=== PATIENT | female | born 1975 | race Two or more races ===

== ENCOUNTER → 2016-12-21 | Outpatient (REF) | payer BC ==
[~2016-12-21] MED LIST: CYMB1CAP PO; DICL75TA PO; DIPH25CA PO; LAMI25TA PO; PROZ40CA PO; WELLTAB PO
[2016-12-21 12:56] LABS: BASO # 0.1 K/mm3 (0.0-0.2); EOS # 0.1 K/mm3 (0.0-0.50); EOS % 1.8 % (0.0-3.0); LARGE UNSTAINED CELL # 0.1 K/mm3 (0.0-0.4); LARGE UNSTAINED CELL % 1.3 % (0.0-4.0); LYMPH # 2.4 K/mm3 (1.5-4.5); LYMPH % 33.3 % (24.0-44.0); MEAN CORPUSCULAR HEMOGLOBIN 30.7 pg (27.0-33.0); MEAN CORPUSCULAR HGB CONC 35.5 g/dl (32.0-36.5); MEAN CORPUSCULAR VOLUME 86.7 fl (80.0-96.0); MONO # 0.4 K/mm3 (0.0-0.8); MONO % 5.1 % (0.0-5.0); NEUTROPHILS % 57.6 % (36.0-66.0); PLATELET COUNT, AUTOMATED 217 k/mm3 (150-450); RED CELL DISTRIBUTION WIDTH 12.9 % (11.5-14.5)
[2016-12-21 13:12] LABS: ALBUMIN 4.1 GM/DL (3.2-5.2); ALBUMIN/GLOBULIN RATIO 1.32 (1.00-1.93); ALKALINE PHOSPHATASE 58 U/L (45-117); ALT/SGPT 17 U/L (12-78); ANION GAP 10 MEQ/L (8-16); AST/SGOT 10 U/L (15-37); BILIRUBIN,TOTAL 0.4 MG/DL (0.2-1.0); BLOOD UREA NITROGEN 10 MG/DL (7-18); CALCIUM LEVEL 8.4 MG/DL (8.5-10.1); CARBON DIOXIDE LEVEL 26 MEQ/L (21-32); CHLORIDE LEVEL 108 MEQ/L (98-107); CREATININE FOR GFR 0.91 MG/DL (0.55-1.02); GLOMERULAR FILTRATION RATE > 60.0 (>58); GLUCOSE, FASTING 85 MG/DL (70-105); POTASSIUM SERUM 4.2 MEQ/L (3.5-5.1); SODIUM LEVEL 144 MEQ/L (136-145); TOTAL PROTEIN 7.2 GM/DL (6.4-8.2)
== END ==
LOC: M LABDRAW1 11:55
PROVIDERS: ATTEND Nurse Practitioner Family
DX: F31.9 Bipolar disorder, unspecified (principal)

== ENCOUNTER 2017-03-19 20:53 | Emergency (ER) | payer BC ==
[~2017-03-19] VITALS: Ht 160 cm; Wt 71.4 kg
[~2017-03-19 20:53] MED LIST changes: -CIPR-249 PO; -FLAG500T PO; -LATU40TA; -NEUR300C; -NORCOTAB PO; -TOPA50TA8; -ZOFR4TAB3 PO
[2017-03-19] MEDS ORDERED: LATU40TA (21:04)
[2017-03-19] MEDS ORDERED: NEUR300C (21:04)
[2017-03-19] MEDS ORDERED: TOPA50TA8 (21:04)
[2017-03-19] MEDS ORDERED: MORPHINE 4 MG/ML 1ML SYRINGE IV ONE (23:30)
[2017-03-19] MEDS ORDERED: ONDANSETRON 4MG/2ML VIAL (J2405) IV ONE (23:30)
[2017-03-19] MEDS ORDERED: NS 1,000 ML IV ONE (23:30)
[2017-03-19 23:49] LABS: BASO % 0.4 % (0.0-1.0); EOS % 0.3 % (0.0-3.0); IMMATURE GRANULOCYTE % 0.6 % (0-0); LYMPH # 1.1 10^3/uL (1.5-4.5); LYMPH % 13.4 % (24.0-44.0); MEAN CORPUSCULAR HEMOGLOBIN 30.2 pg (27.0-33.0); MEAN CORPUSCULAR HGB CONC 34.2 g/dl (32.0-36.5); MEAN CORPUSCULAR VOLUME 88.4 fl (80.0-96.0); MONO # 0.4 10^3/uL (0.0-0.8); MONO % 4.7 % (0.0-5.0); NEUTROPHILS # 6.4 10^3/uL (1.8-7.7); NEUTROPHILS % 80.6 % (36.0-66.0); PLATELET COUNT, AUTOMATED 237 10^3/uL (150-450); RED CELL DISTRIBUTION WIDTH 12.9 % (11.5-14.5); WHITE BLOOD COUNT 7.9 10^3/uL (4.0-10.0)
[2017-03-20 00:11] LABS: ALBUMIN 4.1 GM/DL (3.2-5.2); ALBUMIN/GLOBULIN RATIO 1.08 (1.00-1.93); ALKALINE PHOSPHATASE 65 U/L (45-117); ALT/SGPT 20 U/L (12-78); ANION GAP 3 MEQ/L (8-16); AST/SGOT 13 U/L (7-37); BILIRUBIN,DIRECT 0.1 MG/DL (0.0-0.2); BILIRUBIN,TOTAL 0.8 MG/DL (0.2-1.0); BLOOD UREA NITROGEN 12 MG/DL (7-18); CALCIUM LEVEL 8.7 MG/DL (8.5-10.1); CARBON DIOXIDE LEVEL 31 MEQ/L (21-32); CHLORIDE LEVEL 105 MEQ/L (98-107); CREATININE FOR GFR 0.94 MG/DL (0.55-1.02); GLOMERULAR FILTRATION RATE > 60.0 (>58); GLUCOSE, FASTING 108 MG/DL (70-105); POTASSIUM SERUM 3.7 MEQ/L (3.5-5.1); SODIUM LEVEL 139 MEQ/L (136-145); TOTAL PROTEIN 7.9 GM/DL (6.4-8.2)
[2017-03-20] MEDS ORDERED: ISOVUE-370 76% 100ML VIAL (Q9967) As Ordered ONE (00:20)
--- NOTE | 2017-03-20 01:10 | REPUSA ---
CLINICAL HISTORY: Abdominal pain. TECHNIQUE: Multiple axial, sagittal and coronal CT images were obtained through the abdomen and pelvi s after administration of intravenous contrast material. COMMENTS: Comparison to prior exam performed on 12/07/2013. Fluid-filled stomach. Fluid and small bowels. Fluid-filled colon. Thickening and pericolonic fat stranding in the proximal sigmoid colon. Mild hepatomegaly with fatty infiltration. Mild splenomegaly. The liver is of uniform attenuation without mass or defect. There is no intra or extrahepatic biliary ductal dilatation. The spleen is normal. The gallbladder is surgically absent. The pancreas is of no rmal contour and attenuation characteristics. There is no evidence of adrenal mass. Both kidneys demonstrate prompt and equal nephrograms. The kidneys are normal in size, shape and conf iguration. There is no evidence of renal or ureteral mass. No renal or ureteral calculi are identifie d. There is no hydroureter or hydronephrosis. No evidence for appendicitis. No evidence for small or large bowel obstruction. There is no evidence of abdominal ascites or lymphadenopathy. There is no evidence of intrinsic or extrinsic bladder mass. There is no pelvic ascites or lymphadeno jacob. Images of the lung bases show no evidence of pleural or parenchymal mass. There are no pleural effusi ons. The bony structures are free of lytic or blastic lesions. IMPRESSION: Enterocolitis. Findings are more prominent than around the proximal sigmoid. No perforation or absces s formation. Not present on prior exam. Thank you for your kind referral of this patient.
[2017-03-20] MEDS ORDERED: ZOFR4TAB3 PO (01:20)
[2017-03-20] MEDS ORDERED: CIPR-249 PO (01:20)
[2017-03-20] MEDS ORDERED: FLAG500T PO (01:20)
[2017-03-20] MEDS ORDERED: NORCOTAB PO (01:20)
[2017-03-20 01:30] VITALS: BP 141/90
[2017-03-20] MEDS ORDERED: ONDANSETRON 4 MG ORAL DISINTEGRATING TAB (S0181) PO ONE (01:30)
[2017-03-20] MEDS ORDERED: NORCO 5/325MG TABLET (BULK FOR ED) PO ONE (01:30)
[2017-03-20] MEDS ORDERED: metroNIDAZOLE (FLAGYL) 500 MG TAB PO ONE (01:30)
[2017-03-20] MEDS ORDERED: CIPROFLOXACIN 500 MG TAB PO ONE (01:30)
== END 2017-03-20 01:47 | disposition home or self-care (01) ==
LOC: M ED 20:53
DX: K52.9 Noninfective gastroenteritis and colitis, unspecified (principal); F33.9 Major depressive disorder, recurrent, unspecified; Z79.899 Other long term (current) drug therapy
CPT/HCPCS: 36415; 74177; 80048; 80076; 81001; 83605; 83690; 85025; 96374; 96375; 99284; J2405; Q9967

== ENCOUNTER → 2017-03-19 | Outpatient (REF) | payer BC ==
[~2017-03-19] MED LIST changes: +CIPR-249 PO; +FLAG500T PO; +LATU40TA; +NEUR300C; +NORCOTAB PO; +TOPA50TA8; +ZOFR4TAB3 PO
== END ==
LOC: M SFHCLERA 20:42
PROVIDERS: ATTEND Nurse Practitioner Family
DX: R10.84 Generalized abdominal pain (principal)

== ENCOUNTER → 2017-04-17 | Outpatient (REF) | payer BC ==
[~2017-04-17] MED LIST changes: +CIPR-249 PO; +FLAG500T PO; +LATU40TA; +NEUR300C; +NORCOTAB PO; +TOPA50TA8; +ZOFR4TAB3 PO
== END ==
LOC: M SFHCLERA 10:02
PROVIDERS: ATTEND Family Medicine
DX: R53.83 Other fatigue (principal)

== ENCOUNTER → 2017-04-17 | Outpatient (CLI) | payer BC ==
[2017-04-17 11:09] LABS: BASO # 0.1 10^3/uL (0.0-0.2); BASO % 1.5 % (0.0-1.0); EOS # 0.1 10^3/uL (0.0-0.50); EOS % 2.1 % (0.0-3.0); IMMATURE GRANULOCYTE % 0.2 % (0-0); LYMPH # 2.7 10^3/uL (1.5-4.5); LYMPH % 45.7 % (24.0-44.0); MEAN CORPUSCULAR HEMOGLOBIN 30.2 pg (27.0-33.0); MEAN CORPUSCULAR HGB CONC 34.3 g/dl (32.0-36.5); MEAN CORPUSCULAR VOLUME 87.9 fl (80.0-96.0); MONO # 0.3 10^3/uL (0.0-0.8); NEUTROPHILS # 2.7 10^3/uL (1.8-7.7); NEUTROPHILS % 45.5 % (36.0-66.0); PLATELET COUNT, AUTOMATED 209 10^3/uL (150-450); RED CELL DISTRIBUTION WIDTH 12.7 % (11.5-14.5); WHITE BLOOD COUNT 5.8 10^3/uL (4.0-10.0)
[2017-04-17 11:43] LABS: ALBUMIN 4.4 GM/DL (3.2-5.2); ALBUMIN/GLOBULIN RATIO 1.38 (1.00-1.93); ALKALINE PHOSPHATASE 55 U/L (45-117); ALT/SGPT 17 U/L (12-78); ANION GAP 7 MEQ/L (8-16); AST/SGOT 8 U/L (7-37); BILIRUBIN,TOTAL 0.4 MG/DL (0.2-1.0); BLOOD UREA NITROGEN 9 MG/DL (7-18); CALCIUM LEVEL 9.1 MG/DL (8.5-10.1); CARBON DIOXIDE LEVEL 26 MEQ/L (21-32); CHLORIDE LEVEL 110 MEQ/L (98-107); CHOLESTEROL LEVEL 169 MG/DL (<200); CREATININE FOR GFR 1.04 MG/DL (0.55-1.02); GLOMERULAR FILTRATION RATE > 60.0 (>58); GLUCOSE, FASTING 98 MG/DL (70-105); POTASSIUM SERUM 4.4 MEQ/L (3.5-5.1); SODIUM LEVEL 143 MEQ/L (136-145); TOTAL PROTEIN 7.6 GM/DL (6.4-8.2); TRIGLYCERIDES LEVEL 154 MG/DL (<150)
[2017-04-17 12:03] LABS: VITAMIN B12 LEVEL 347 PG/ML (247-911)
== END ==
LOC: M LRY 10:17
PROVIDERS: ATTEND Registered Nurse Psychiatric/Mental Health
DX: F31.81 Bipolar II disorder (principal)

== ENCOUNTER → 2017-05-08 | Outpatient (REF) | payer BC ==
[2017-05-08 11:48] LABS: ANION GAP 6 MEQ/L (8-16); BLOOD UREA NITROGEN 13 MG/DL (7-18); CARBON DIOXIDE LEVEL 27 MEQ/L (21-32); CHLORIDE LEVEL 110 MEQ/L (98-107); CREATININE FOR GFR 0.92 MG/DL (0.55-1.02); GLOMERULAR FILTRATION RATE > 60.0 (>58); GLUCOSE, FASTING 103 MG/DL (70-105); POTASSIUM SERUM 3.9 MEQ/L (3.5-5.1); SODIUM LEVEL 143 MEQ/L (136-145)
[2017-05-08 12:10] LABS: TOTAL PROTEIN,RANDOM URINE 14.5 MG/DL (0.0-12.0)
[2017-05-08 12:34] LABS: ERYTHROCYTE SEDIMENTATION RATE 10 mm/hr (0-20)
[2017-05-10 00:07] LABS: ANTINUCLEAR ANTIBODIES DIRECT Negative (Negative); COMPLEMENT TOTAL (CH50) > 63 U/mL (42-60)
[2017-05-14 09:32] LABS: DRVV SCREEN 45.9 SEC
[2017-05-14 09:36] LABS: PTT LUPUS TYPE ANTICOAG SCREEN 1.1 (0-1.2)
== END ==
LOC: M SFHCLERA 08:04
DX: R68.89 Other general symptoms and signs (principal)
CPT/HCPCS: 86162

== ENCOUNTER → 2017-05-28 | Outpatient (CLI) | payer BC ==
[~2017-05-28] MED LIST changes: -CIPR-249 PO; -CYMB1CAP PO; -DICL75TA PO; -DIPH25CA PO; -FLAG500T PO; -LAMI25TA PO; -LATU40TA; -NEUR300C; -NORCOTAB PO; +PROHANCE 279.3MG/ML 15ML VIAL (A9576) As Ordered; -PROZ40CA PO; -TOPA50TA8; -WELLTAB PO; -ZOFR4TAB3 PO
== END ==
LOC: M RAD 15:06
DX: R47.01 Aphasia (principal)

== ENCOUNTER → 2017-06-26 | Outpatient (CLI) | payer BC ==
[~2017-06-26] MED LIST changes: +E-Z-GAS II EFFERVESCENT PACKET (SODIUM BICARB./CITRIC ACID/SIMETHICONE) As Ordered; +E-Z-HD 98% w/w 340GM SUSP BTL As Ordered; +E-Z-PAQUE 96% w/w SUSP 176GM BTL As Ordered; -PROHANCE 279.3MG/ML 15ML VIAL (A9576) As Ordered
== END ==
LOC: M RAD 08:19
DX: R93.3 Abnormal findings on diagnostic imaging of other parts of digestive tract (principal); R19.7 Diarrhea, unspecified; K21.9 Gastro-esophageal reflux disease without esophagitis
CPT/HCPCS: 74245

== ENCOUNTER 2017-08-09 08:24 | Day surgery (SDC) | payer BC ==
[2017-08-09] MEDS: NS 1,000 ML IV (09:11)
[2017-08-09] MEDS ORDERED: PROPOFOL 200 MG/20 ML VIAL As Ordered ×2 (09:51→10:12)
== END 2017-08-09 10:41 | disposition home or self-care (01) ==
LOC: M OPP 08:24
DX: D12.0 Benign neoplasm of cecum (principal); K57.30 Diverticulosis of large intestine without perforation or abscess without bleeding; K64.0 First degree hemorrhoids; R19.7 Diarrhea, unspecified; R63.4 Abnormal weight loss; R93.3 Abnormal findings on diagnostic imaging of other parts of digestive tract; F41.9 Anxiety disorder, unspecified; R51 Headache; F31.9 Bipolar disorder, unspecified; Z79.891 Long term (current) use of opiate analgesic; Z79.899 Other long term (current) drug therapy; Z87.19 Personal history of other diseases of the digestive system; Z90.711 Acquired absence of uterus with remaining cervical stump
CPT/HCPCS: 45385

== ENCOUNTER → 2018-02-21 | Outpatient (CLI) | payer BC | LOC: M RAD 15:35 | DX: R10.2 Pelvic and perineal pain (principal) | CPT/HCPCS: 76856 ==

== ENCOUNTER → 2018-05-28 | Outpatient (REF) | payer BC ==
[~2018-05-28] MED LIST changes: +CIPR-249 PO; +CYMB1CAP PO; +DICL75TA PO; +DIPH25CA PO; -E-Z-GAS II EFFERVESCENT PACKET (SODIUM BICARB./CITRIC ACID/SIMETHICONE) As Ordered; -E-Z-HD 98% w/w 340GM SUSP BTL As Ordered; -E-Z-PAQUE 96% w/w SUSP 176GM BTL As Ordered; +FLAG500T PO; +LAMI25TA PO; +LATU40TA PO; +NEUR300C PO; +NORCOTAB PO; +PROZ40CA PO; +TOPA50TA8 PO; +WELLTAB PO; +ZOFR4TAB14 PO
[2018-05-28 12:13] LABS: APPEARANCE, URINE HAZY (CLEAR); BACTERIA, URINE AUTO NEGATIVE (NEGATIVE); BILIRUBIN, URINE AUTO NEGATIVE (NEGATIVE); BLOOD, URINE BLOOD NEGATIVE (NEGATIVE); COLOR, URINE YELLOW (YELLOW); GLUCOSE, URINE (UA) AUTO NEGATIVE (NEGATIVE); KETONE, URINE AUTO NEGATIVE (NEGATIVE); LEUKOCYTE ESTERASE, URINE AUTO NEGATIVE (NEGATIVE); MUCUS, URINE SMALL (NEGATIVE); NITRITE, URINE AUTO NEGATIVE (NEGATIVE); PROTEIN, URINE AUTO NEGATIVE (NEGATIVE); RBC, URINE AUTO 0 /HPF (0-3); SQUAMOUS EPITHELIAL CELL UR AU 5 /HPF (0-6); UROBILINOGEN, URINE AUTO 0.2 mg/dL (0.0-2.0); WBC, URINE AUTO 1 /HPF (0-3)
== END ==
LOC: M SMT 11:25
PROVIDERS: ATTEND Nurse Practitioner Women's Health
DX: N39.41 Urge incontinence (principal)

== ENCOUNTER → 2018-06-06 | Outpatient (REF) | payer BC ==
[2018-06-06 16:25] LABS: CPK CREATINE PHOSPHOKINASE 42 U/L (26-192); RHEUMATOID FACTOR QUANT < 10.0 IU/ML (<15.0)
[2018-06-06 16:35] LABS: FOLATE 15.3 NG/ML
[2018-06-09 08:53] LABS: VITAMIN B12 LEVEL 299 PG/ML (232-1245)
[2018-06-09 14:12] LABS: ANTINUCLEAR ANTIBODIES DIRECT Negative (Negative)
[2018-06-10 00:06] LABS: ALDOLASE 3.7 U/L (3.3-10.3); VITAMIN E(ALPHA TOCOPHEROL) 16.9 mg/L (7.0-25.1); VITAMIN E(GAMMA TOCOPHEROL) 3.2 mg/L (0.5-5.5)
[2018-06-11 00:07] LABS: VITAMIN B1 LEVEL WHOLE BLOOD 145.5 nmol/L (66.5-200.0); VITAMIN B6,PYRIDOXAL PHOSPHATE 6.2 ug/L (2.0-32.8)
== END ==
LOC: M LABNEURO 15:35 → M LABDRAW1 15:35
PROVIDERS: ATTEND Psychiatry & Neurology Neurology
DX: M79.10 Myalgia, unspecified site (principal); E53.8 Deficiency of other specified B group vitamins

== ENCOUNTER 2019-04-14 14:43 | Emergency (ER) | payer BC ==
[~2019-04-14] VITALS: Ht 160 cm; Wt 70.5 kg
[~2019-04-14 14:43] MED LIST changes: -DIPH25CA PO; +DIPH25CA32 PO; +HYDR-3715 PO; -NORCOTAB PO
[2019-04-14] MEDS ORDERED: LAMO200T3 (14:53)
[2019-04-14] MEDS ORDERED: DULO1CAP6 (14:53)
[2019-04-14] MEDS ORDERED: IBUPROFEN 800 MG TAB PO ONE (16:30)
[2019-04-14 17:32] LABS: BASO # 0.1 10^3/uL (0.0-0.2); BASO % 0.8 % (0.0-1.0); EOS # 0.1 10^3/uL (0.0-0.5); EOS % 1.2 % (0.0-3.0); HEMATOCRIT 44.5 % (36.0-47.0); HEMOGLOBIN 14.9 g/dl (12.0-15.5); LYMPH # 2.7 10^3/uL (1.5-5.0); LYMPH % 23.7 % (24.0-44.0); MEAN CORPUSCULAR HEMOGLOBIN 30.7 pg (27.0-33.0); MEAN CORPUSCULAR HGB CONC 33.5 g/dl (32.0-36.5); MEAN CORPUSCULAR VOLUME 91.8 fl (80.0-96.0); MONO # 0.5 10^3/uL (0.0-0.8); MONO % 4.4 % (0.0-5.0); NEUTROPHILS % 69.6 % (36.0-66.0); PLATELET COUNT, AUTOMATED 231 10^3/uL (150-450); RED BLOOD COUNT 4.85 10^6/uL (4.00-5.40); WHITE BLOOD COUNT 11.5 10^3/uL (4.0-10.0)
[2019-04-14 18:01] LABS: BLOOD UREA NITROGEN 7 MG/DL (7-18); CALCIUM LEVEL 9.7 MG/DL (8.5-10.1); CARBON DIOXIDE LEVEL 30 MEQ/L (21-32); CHLORIDE LEVEL 106 MEQ/L (98-107); CREATININE FOR GFR 0.95 MG/DL (0.55-1.30); GLOMERULAR FILTRATION RATE > 60.0 (>58); GLUCOSE, FASTING 95 MG/DL (70-100); POTASSIUM SERUM 4.4 MEQ/L (3.5-5.1); SODIUM LEVEL 141 MEQ/L (136-145)
[2019-04-14 18:04] LABS: HCG, SERUM QUALITATIVE NEGATIVE (NEGATIVE)
[2019-04-14 18:06] LABS: ALBUMIN 4.2 GM/DL (3.2-5.2); BILIRUBIN,DIRECT 0.2 MG/DL (0.0-0.2); BILIRUBIN,TOTAL 0.6 MG/DL (0.2-1.0); TOTAL PROTEIN 7.3 GM/DL (6.4-8.2)
--- NOTE | 2019-04-14 18:53 | REPVR ---
PROCEDURE INFORMATION: Exam: CT Abdomen And Pelvis Without Contrast Exam date and time: 04/14/2019 6:09 PM Age: 44 years old Clinical history: Pain; Other: Left flank; Additional info: Left flank pain TECHNIQUE: Imaging protocol: Computed tomography of the abdomen and pelvis without contrast. Radiation optimization: All CT scans at this facility use at least one of these dose optimization techniques: automated exposure control; mA and/or kV adjustment per patient size (includes targeted exams where dose is matched to clinical indication); or iterative reconstruction. COMPARISON: CT ABD/PEL W/IV CONTRAST ONLY 03/20/2017 12:22 AM FINDINGS: Lungs: No suspicious mass or airspace process in the visualized lung bases. Liver: Noncontrast liver shows no obvious lesion. Gallbladder and bile ducts: Gallbladder is surgically absent. Pancreas: Noncontrast pancreas shows no obvious mass or adjacent fluid. Spleen: Noncontrast spleen shows no obvious focal deformity. Adrenals: Adrenal glands are normal in appearance. Kidneys and ureters: Kidneys show no stone or hydronephrosis. Stomach and bowel: No evidence of small bowel obstruction. Diverticular changes are present within the colon without inflammation. Appendix: Appendix is not seen. No RLQ inflammation to suggest appendicitis. Intraperitoneal space: No pneumoperitoneum. No abnormal pelvic mass. Vasculature: Atherosclerotic change present in the aorta, without aneurysm. Lymph nodes: No enlarged lymph nodes. Bladder: Urinary bladder appears normal. Bones/joints: Bony structures show no acute fracture or destructive process. Other findings: Limited evaluation without enteric or IV contrast. IMPRESSION: 1. No evidence of renal stone or obstruction. No explanation for acute left flank pain. 2. Scattered diverticular changes involving the colon with no active inflammation Electronically signed by: Dennys Mata On 04/14/2019 18:52:40 PM
--- NOTE | 2019-04-14 19:07 | REPVR ---
PROCEDURE INFORMATION: Exam: US Pelvis Complete, Transabdominal Exam date and time: 04/14/2019 6:46 PM Age: 44 years old Clinical history: Pelvic pain; Prior surgery; Surgery date: 6+ months; Surgery type: Álvaro 2000; Additional info: Bilat pelvic pain TECHNIQUE: Imaging protocol: Real-time transabdominal pelvic ultrasound with image documentation. Complete exam. COMPARISON: US PELVIC NON-OB COMPLETE 02/21/2018 3:47 PM FINDINGS: Uterus is surgically absent Right ovary measures 1.9 x 0.9 x 0.7 cm. Left ovary measures 2 x 0.9 x 0.8 cm. No pelvic free fluid. Small, sub-centimeters left ovarian follicles are present. No evidence of ovarian torsion IMPRESSION: Normal appearing ovaries in a patient with prior hysterectomy. No concerning findings Electronically signed by: Dennys Mata On 04/14/2019 19:07:31 PM
[2019-04-14 19:08] LABS: CHLAMYDIA DNA AMPLIFICATION NEGATIVE (NEGATIVE); GC DNA AMPLIFICATION NEGATIVE (NEGATIVE)
[2019-04-14] MEDS ORDERED: MACR100C43 PO (20:18)
[2019-04-14 20:26] VITALS: BP 155/94
== END 2019-04-14 20:26 | disposition home or self-care (01) ==
LOC: M ED 14:43
DX: N39.0 Urinary tract infection, site not specified (principal); N80.9 Endometriosis, unspecified; K52.9 Noninfective gastroenteritis and colitis, unspecified; F17.200 Nicotine dependence, unspecified, uncomplicated; F41.9 Anxiety disorder, unspecified; Z79.899 Other long term (current) drug therapy

== ENCOUNTER → 2020-03-14 | Outpatient (CLI) | payer BC ==
[~2020-03-14] MED LIST changes: +DULO1CAP6; +LAMO200T3; +MACR100C43 PO
== END ==
LOC: M LABSMTC 11:47
PROVIDERS: ATTEND Family Medicine
DX: Z20.828 Contact with and (suspected) exposure to other viral communicable diseases (principal)
CPT/HCPCS: C9803; U0003

== ENCOUNTER 2021-01-16 16:57 | Emergency (ER) | payer BC ==
[~2021-01-16] VITALS: Ht 162.6 cm; Wt 58.6 kg
[2021-01-16] MEDS ORDERED: ACETAMINOPHEN 325 MG TAB PO ONE (18:05)
[2021-01-16] MEDS ORDERED: ONDANSETRON 4MG/2ML VIAL IV ONE ×2 (18:05→18:35)
[2021-01-16] MEDS ORDERED: LABETALOL 100MG/20ML VIAL IV STA (18:33)
[2021-01-16] MEDS ORDERED: MORPHINE 2 MG/ML 1ML VIAL (J2270) IV PRN (18:35)
[2021-01-16 18:36] LABS: HEMATOCRIT 45.3 % (36.0-47.0); HEMOGLOBIN 15.5 g/dl (12.0-15.5); MEAN CORPUSCULAR HEMOGLOBIN 31.4 pg (27.0-33.0); MEAN CORPUSCULAR HGB CONC 34.2 g/dl (32.0-36.5); MEAN CORPUSCULAR VOLUME 91.7 fl (80.0-96.0); PLATELET COUNT, AUTOMATED 209 10^3/uL (150-450); RED BLOOD COUNT 4.94 10^6/uL (4.00-5.40); WHITE BLOOD COUNT 8.6 10^3/uL (4.0-10.0)
--- NOTE | 2021-01-16 18:42 | REP ---
INDICATION: CHEST PAIN. COMPARISON: None. TECHNIQUE: Portable FINDINGS: The technique utilized in obtaining the radiograph has magnified the cardiac silhouette and accentuated the interstitial markings. The superior mediastinal structures are midline. The cardiac silhouette is unremarkable in size, shape, and position. The diaphragmatic surfaces of the lungs are regular, and the costophrenic angles are clear. The pulmonary dalton are clear. The imaged osseous structures are intact. IMPRESSION: There is no acute cardiopulmonary disease. <Electronically signed by Willian Sue > 01/16/21 [id number]
--- NOTE | 2021-01-16 18:45 | REPVR ---
PROCEDURE INFORMATION: Exam: CT Head Without Contrast Exam date and time: 01/16/2021 6:21 PM Age: 45 years old Clinical indication: Pain; Headache; Additional info: Severe CARDOSO, HTN TECHNIQUE: Imaging protocol: Computed tomography of the head without contrast. Radiation optimization: All CT scans at this facility use at least one of these dose optimization techniques: automated exposure control; mA and/or kV adjustment per patient size (includes targeted exams where dose is matched to clinical indication); or iterative reconstruction. COMPARISON: MRI-Brain W/O FOLL BY WITH 05/28/2017 3:51 PM FINDINGS: Brain: Normal. No hemorrhage. Unremarkable white matter. No mass effect. Cerebral ventricles: No ventriculomegaly. Paranasal sinuses: Visualized sinuses are unremarkable. No fluid levels. Mastoid air cells: Visualized mastoid air cells are well aerated. Bones/joints: Unremarkable. No acute fracture. Soft tissues: Unremarkable. IMPRESSION: No acute intracranial abnormality. Electronically signed by: Apolinar Warner On 01/16/2021 18:44:47 PM
[2021-01-16 18:53] LABS: INR 0.93; PARTIAL THROMBOPLASTIN TIME 29.1 SECONDS (25.9-37.0); PROTHROMBIN TIME 12.9 SECONDS (12.7-14.5)
[2021-01-16 19:02] LABS: ALBUMIN 4.3 GM/DL (3.2-5.2); ALT/SGPT 18 U/L (12-78); BILIRUBIN,DIRECT 0.1 MG/DL (0.0-0.2); BILIRUBIN,TOTAL 0.5 MG/DL (0.2-1.0); BLOOD UREA NITROGEN 8 MG/DL (7-18); CALCIUM LEVEL 10.1 MG/DL (8.5-10.1); CARBON DIOXIDE LEVEL 30 MEQ/L (21-32); CHLORIDE LEVEL 108 MEQ/L (98-107); CK-MB VALUE MASS < 1.0 NG/ML (<3.6); CPK CREATINE PHOSPHOKINASE 36 U/L (26-192); CREATININE FOR GFR 0.92 MG/DL (0.55-1.30); FREE T4 1.05 NG/DL (0.76-1.46); GLOMERULAR FILTRATION RATE > 60.0 (>58); GLUCOSE, FASTING 95 MG/DL (70-100); LIPASE 82 U/L (73-393); MB/CK RELATIVE INDEX 2.78 (< OR =4); POTASSIUM SERUM 4.1 MEQ/L (3.5-5.1); SODIUM LEVEL 138 MEQ/L (136-145); TOTAL PROTEIN 7.7 GM/DL (6.4-8.2); TROPONIN I < 0.02 NG/ML (< 0.10)
[2021-01-16 19:10] LABS: ATYPICAL LYMPH 8 % (0-5); BASOPHILS 5 % (0-1); EOSINOPHILS 3 % (0-3); LYMPHOCYTES 45 % (16-44); MONOCYTES 5 % (0-5); NEUTROPHILS 34 % (28-66)
[2021-01-16 19:11] LABS: PLATELET ESTIMATE NORMAL (NORMAL)
--- NOTE | 2021-01-16 19:52 | ECGEPIP ---
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
[2021-01-16] MEDS ORDERED: METOCLOPRAMIDE INJ 10MG/2ML VIAL (J2765 PER 1) IV ONE (21:10)
[2021-01-16] MEDS ORDERED: diphenhydrAMINE 50MG/ML VIAL (J1200) IV ONE (21:10)
[2021-01-16] MEDS ORDERED: NS 1,000 ML IV ONE (21:10)
[2021-01-16] MEDS ORDERED: KETOROLAC 30 MG/ML 1ML VIAL IV ONE (21:10)
[2021-01-16 21:32] VITALS: BP 179/106
[2021-01-16] MEDS ORDERED: LAMI1TAB9 PO (23:32)
[2021-01-16] MEDS ORDERED: BUSP15TA47 PO (23:32)
[2021-01-16 23:40] VITALS: BP 132/85
== END 2021-01-16 23:51 | disposition home or self-care (01) ==
LOC: M ED 16:57
DX: G43.909 Migraine, unspecified, not intractable, without status migrainosus (principal); R07.9 Chest pain, unspecified; F17.200 Nicotine dependence, unspecified, uncomplicated; Z79.899 Other long term (current) drug therapy
CPT/HCPCS: 36415; 70450; 71045; 80047; 80048; 80076; 82550; 82553; 83690; 84439; 84443; 84484; 85025; 85610; 85730; 87798; 93005; 93041; 94760; 96361; 96374; 96375; 96376; 99285; J1200; J1885; J2270; J2405

== ENCOUNTER → 2022-01-07 | Outpatient (CLI) | payer BC ==
[~2022-01-07] MED LIST changes: +BUSP15TA47 PO; +LAMI1TAB9 PO; -LATU40TA PO; +LATU40TA2 PO
[2022-01-07 09:47] LABS: BASO # 0.1 10^3/uL (0.0-0.2); BASO % 1.8 % (0.0-1.0); EOS # 0.1 10^3/uL (0.0-0.5); EOS % 2.1 % (0.0-3.0); HEMATOCRIT 42.8 % (36.0-47.0); HEMOGLOBIN 14.3 g/dl (12.0-15.5); LYMPH # 2.6 10^3/uL (1.5-5.0); LYMPH % 42.4 % (24.0-44.0); MEAN CORPUSCULAR HEMOGLOBIN 29.9 pg (27.0-33.0); MEAN CORPUSCULAR HGB CONC 33.4 g/dl (32.0-36.5); MEAN CORPUSCULAR VOLUME 89.4 fl (80.0-96.0); MONO # 0.4 10^3/uL (0.0-0.8); MONO % 6.4 % (2.0-8.0); NEUTROPHILS # 2.9 10^3/uL (1.5-8.5); NEUTROPHILS % 46.8 % (36.0-66.0); PLATELET COUNT, AUTOMATED 193 10^3/uL (150-450); RED BLOOD COUNT 4.79 10^6/uL (4.00-5.40); WHITE BLOOD COUNT 6.1 10^3/uL (4.0-10.0)
[2022-01-07 10:04] LABS: HEMOGLOBIN A1c 5.2 %
[2022-01-07 10:25] LABS: ALT/SGPT 15 U/L (12-78); BILIRUBIN,TOTAL 0.3 MG/DL (0.2-1.0); BLOOD UREA NITROGEN 14 MG/DL (7-18); CALCIUM LEVEL 9.6 MG/DL (8.5-10.1); CARBON DIOXIDE LEVEL 29 MEQ/L (21-32); CHLORIDE LEVEL 108 MEQ/L (98-107); CHOLESTEROL LEVEL 218 MG/DL (<200); CHOLESTEROL RISK RATIO 3.353 (<5); CREATININE FOR GFR 0.95 MG/DL (0.55-1.30); GLOMERULAR FILTRATION RATE > 60.0 (>58); GLUCOSE, FASTING 94 MG/DL (70-100); HDL CHOLESTEROL 65 MG/DL (>40); LDL CHOLESTEROL 139 MG/DL (<100); NON-HDL-C 153 MG/DL; POTASSIUM SERUM 4.7 MEQ/L (3.5-5.1); SODIUM LEVEL 139 MEQ/L (136-145); TOTAL PROTEIN 7.1 GM/DL (6.4-8.2); TRIGLYCERIDES LEVEL 72 MG/DL (<150)
[2022-01-09 10:50] LABS: VITAMIN B12 LEVEL 275 PG/ML (247-911)
[2022-01-09 10:51] LABS: FOLATE 20.3 NG/ML (>5.4)
== END ==
LOC: M LAB 08:34
PROVIDERS: ATTEND Nurse Practitioner Family
DX: G43.909 Migraine, unspecified, not intractable, without status migrainosus (principal); Z13.220 Encounter for screening for lipoid disorders; Z13.1 Encounter for screening for diabetes mellitus; F31.9 Bipolar disorder, unspecified

== ENCOUNTER → 2023-01-12 | Outpatient (CLI) | payer BC ==
[~2023-01-12] MED LIST changes: +DIPH-435 PO; -DIPH25CA32 PO
[2023-01-12 10:18] LABS: BASO # 0.1 10^3/uL (0.0-0.2); BASO % 1.6 % (0.0-1.0); EOS # 0.2 10^3/uL (0.0-0.5); EOS % 2.4 % (0.0-3.0); HEMATOCRIT 44.5 % (36.0-47.0); HEMOGLOBIN 14.7 g/dl (12.0-15.5); LYMPH # 2.9 10^3/uL (1.5-5.0); LYMPH % 36.2 % (24.0-44.0); MEAN CORPUSCULAR HEMOGLOBIN 29.4 pg (27.0-33.0); MONO # 0.6 10^3/uL (0.0-0.8); MONO % 7.1 % (2.0-8.0); NEUTROPHILS # 4.1 10^3/uL (1.5-8.5); NEUTROPHILS % 52.1 % (36.0-66.0); PLATELET COUNT, AUTOMATED 223 10^3/uL (150-450); WHITE BLOOD COUNT 7.9 10^3/uL (4.0-10.0)
[2023-01-12 10:51] LABS: ALKALINE PHOSPHATASE 69 U/L (46-116); ALT/SGPT 12 U/L (7.0-40); AST/SGOT < 8 U/L (<34); BILIRUBIN,TOTAL 0.6 MG/DL (0.3-1.2); BLOOD UREA NITROGEN 13 MG/DL (9-23); CARBON DIOXIDE LEVEL 30 MMOL/L (20-31); CHLORIDE LEVEL 108 MMOL/L (98-107); CHOLESTEROL LEVEL 197 MG/DL (<200); CHOLESTEROL RISK RATIO 4.13 (<5); CREATININE FOR GFR 1.04 MG/DL (0.55-1.30); GLUCOSE, FASTING 98 MG/DL (60-100); HDL CHOLESTEROL 47.6 MG/DL (>40); NON-HDL-C 149.4 MG/DL; POTASSIUM SERUM 5.2 MMOL/L (3.5-5.1); SODIUM LEVEL 142 MMOL/L (136-145); TRIGLYCERIDES LEVEL 152 MG/DL (<150); VITAMIN B12 LEVEL 892 PG/ML (211-911)
== END ==
LOC: M LAB 09:11
PROVIDERS: ATTEND Nurse Practitioner Family
DX: E78.5 Hyperlipidemia, unspecified (principal); E53.8 Deficiency of other specified B group vitamins